=== PATIENT | male | born 1980 | race Caucasian/White ===

== ENCOUNTER 2023-10-04 18:47 | Emergency (ER) | payer OTHER, SELFPAY ==
[2023-10-04 18:57] VITALS: BP 177/99; PULSE 111; RESP 20; TEMP 36.8; O2SAT 96; BMI 48.8
[2023-10-04 19:01] VITALS: PULSE 89
--- NOTE | 2023-10-04 19:02 | CRLHL7_ITS ---
For Patients: As a result of the Century Cures Act, medical imaging exams and procedure reports are released immediately into your electronic medical record. You may view this report before your referring provider. If you have questions, please contact your health care provider. INDICATION: Swelling, painful left calf TECHNIQUE: Ultrasound venous duplex lower left extremity. Compression venous exam was performed using robertson-scale, color Doppler, and spectral Doppler analysis. COMPARISON: None. FINDINGS: The left common femoral vein and greater saphenous veins show normal compressibility and waveforms. Left deep femoral vein shows normal compression and waveforms. At the level of the distal femoral vein there is incomplete compressibility with nonobstructing thrombus extending into the popliteal vein. At the level of the popliteal vein this is occlusive. Left posterior tibial and peroneal veins are not well seen with subcutaneous edema at this level. On the contralateral side the right common femoral vein shows normal compression and waveforms. IMPRESSION: Acute deep venous thrombosis involving the distal left femoral vein where it is nonocclusive becoming occlusive at the popliteal vein level. Edema within the left calf with the posterior tibial and peroneal veins not seen. Results given to Dr. Kinsey by the production worker at the time of the study on 10/04/2023 Dictated by Jb Huang MD @ 10/04/2023 8:44:12 PM (Electronically Signed)
[2023-10-04 20:54] VITALS: BP 154/84; PULSE 95; RESP 20; TEMP 36.8; O2SAT 96
--- NOTE | 2023-10-04 21:00 | ED.GENADULT ---
HPI - General Adult General Date Seen: 10/04/23 Chief complaint: Extremity Pain/Injury, Lower Stated complaint: L leg swollen Time Seen by Provider: 10/04/23 20:44 Source: patient Mode of arrival: ambulatory Limitations: no limitations History of Present Illness HPI narrative: Patient is a 42-year-old male presenting for left leg swelling. He states she 1st noticed some swelling and pain to his left leg month ago but that resolved in the noticed over the past few days he is having some increased pain or leg and swelling. No history of blood clots. Is concerning is a blood clot now. 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 He is based out of [place] at the time. Denies chest pain, shortness of breath, weakness, numbness, fevers, chills. Does not have a primary care provider in the area. No other concerns noted at this time Related Data Previous Rx's ?Medication ?Instructions ?Recorded apixaban 5 mg (74 tabs) tablets in 5 mg PO BID #74 ea 10/04/23 a dose pack ([facility] DVT-PE Treat 30D Start) Allergies Allergy/AdvReac Type Severity Reaction Status Date / Time No Known Drug Allergies Allergy Verified 10/04/23 19:00 Review of Systems Narrative: Pertinent systems reviewed are negative unless stated HPI PFSH PFSH Social History Smoking Status: Never smoker Second hand tobacco smoke exposure: No How often do you have a drink containing alcohol: never AUDIT-C Alcohol total score: 0 Non-prescribed substance use: denies use Exam Narrative: Exam Narrative: Const: Well-nourished, Well-developed, in mild distress Eyes: PERRL, no conjunctival injection, and symmetrical lids HENT: Atraumatic external nose and ears. Moist mucous membranes. Neck: Symmetric, trachea midline, No thyromegaly. CVS: RRR, No murmurs or gallops. Peripheral pulses 2+ and equal in all extremities RESP: Unlabored respiratory effort. Clear to auscultation bilaterally. GI: Nontender/Nondistended, No rebound or guarding. MSK:Extremities w/o deformity, Normal Active ROM, swollen left lower extremity Skin: Warm, Dry. No rashes or lesions. Neuro: Normal Muscle tone, No focal neurological deficits. Psych: Awake, Alert, & Oriented x3. Appropriate mood and affect. Const: Vital Signs, click to edit/add: Vital Signs - 24 hr 10/04/23 18:57 10/04/23 19:01 10/04/23 20:54 Temperature 98.3 F 98.3 F Pulse Rate [Left D orsalis Pedis] 89 Pulse Rate [Right Pulse Oximeter] 111 H 95 Respiratory Rate 20 20 Blood Pressure [Ri ght Upper Arm] 177/99 H 154/84 H Pulse Oximetry 96 96 Oxygen Delivery Me thod Room Air Room Air Course Vital Signs Vital signs: Initial Vital Signs Temperature 98.3 F 10/04/23 18:57 Temperature Source Temporal Artery Scan 10/04/23 18:57 Pulse Rate 111 H 10/04/23 18:57 Respiratory Rate 20 10/04/23 18:57 Blood Pressure 177/99 H 10/04/23 18:57 Blood Pressure Mean 125 H 10/04/23 18:57 Blood Pressure Position Sitting 10/04/23 18:57 Pulse Oximetry 96 10/04/23 18:57 Oxygen Delivery Method Room Air 10/04/23 18:57 Vital Signs Temperature 98.3 F 10/04/23 18:57 Pulse Rate 111 H 10/04/23 18:57 Respiratory Rate 20 10/04/23 18:57 Blood Pressure 177/99 H 10/04/23 18:57 Pulse Oximetry 96 10/04/23 18:57 Oxygen Delivery Method Room Air 10/04/23 18:57 Temperature 98.3 F 10/04/23 20:54 Pulse Rate 95 10/04/23 20:54 Respiratory Rate 20 10/04/23 20:54 Blood Pressure 154/84 H 10/04/23 20:54 Pulse Oximetry 96 10/04/23 20:54 Oxygen Delivery Method Room Air 10/04/23 20:54 Medical Decision Making MDM Narrative Medical decision making narrative: Patient is a 42-year-old male presenting for left lower extremity swelling. There is concerned for a DVT an ultrasound will be ordered. He is having no chest pain shortness of breath and a PE seems unlikely. Do not believe further lab work imaging is necessary at this time. Ultrasound returned showing a DVT starting at the distal left moral vein as initially nonocclusive and becomes occlusive by time he gets to the popliteal vein. He is otherwise doing well. I spoke to about starting on a blood thinner. He states he can not stay in town tonight pick it up from the pharmacy tomorrow. I explained to him the need to see primary care he states he will get a primary care provider either in [place] for will be going back home [place] shortly. States he is going to stop working in the meantime. Imaging Data Venous US: Attestation: I have reviewed the pertinent imaging results. Radiologist's impression: Acute deep venous thrombosis involving the distal left femoral vein where it is nonocclusive becoming occlusive at the popliteal vein level. Edema within the left calf with the posterior tibial and peroneal veins not seen. Results given to Dr. Kinsey by the churn driller helper at the time of the study on 10/04/2023 Dictated by Jb Huang MD @ 10/04/2023 8:44:12 PM Discharge Plan Discharge Clinical Impression: DVT (deep venous thrombosis) Qualifiers: DVT location: lower extremity Affected thrombotic vein of extremity: unspecified vein of extremity Chronicity: acute Laterality: left Qualified Code(s): I82.402 - Acute embolism and thrombosis of unspecified deep veins of left lower extremity Patient Disposition: Home, Self-Care Condition: Stable Additional Instructions: I will give you a 30 days supply of the blood thinner but is important that you get a primary care provider within the next 30 days to follow you on these medications. Typically you need 3 months worth but is all dependent on risk factors and something that will be decided by primary care provider. Prescriptions: New Eliquis DVT-PE Treat 30D Start 5 mg (74 tabs) tablets,dose pack 5 mg PO BID Qty: 74 0RF Rx Instructions: Take 10 mg twice daily for 7 days and then start taking 5 mg twice daily until out Stand Alone Forms: [employer] Info Instructions
[2023-10-04 21:11] VITALS: BP 154/84; PULSE 95; RESP 20; TEMP 36.8
== END 2023-10-04 21:13 | disposition home or self-care (01) ==
PROVIDERS: Emergency Provider Student in an Organized Health Care Education/Training Program
DX: I82.402 Acute embolism and thrombosis of unspecified deep veins of left lower extremity (principal)
CPT/HCPCS: 93971; 99282; 99284